=== PATIENT | female | born 1960 | race Hispanic/Latino ===

== ENCOUNTER → 2016-03-18 | Day surgery (SDC) | payer OTHER ==
[~2016-03-18] MED LIST: ASPIRIN EC81 M1 PO; FLOVENT HFA12 GM INH; LIDOCAINE1 EACH TOP; MELOXICAM15 M1 PO; MONTELUKAST SOD10 M1 PO; OXYBUTYNIN CHLOR5 M2 PO; PAXIL40 M1 PO; VENTOLIN HFA18 GM INH
--- NOTE | 2016-03-18 15:22 | Operative Report ---
Operative/Inv Procedure Report Surgery Date: 03/18/16 Name of Procedure: cystoscopy: mid-urethral sling/mesh insertion Pre-Operative Diagnosis: stress urinary incontinence Post-Operative Diagnosis: same Estimated Blood Loss: less than 50ml Surgeon/Project Manager Retail: GE[place] GALLOWAY MD Anesthesia: laryngeal mask airway Complications: none Condition: improved Operative/Procedure Note Note: The patient was taken to the operating room placed the OR table in supine position. After adequate anesthesia and antibiotics the patient was then placed lithotomy stirrups draped and prepped in usual surgical fashion. Weighted speculum was placed without difficulty. 14 [place] Kim catheter was inserted without difficulty, draining clear urine. Once the bladder was completely drained, the kim was clamped. Hydrodissection, using 1% lidocaine with epinephrine, was performed along the mid line of the urethra, from the urethral orifice to the bladder neck. 15 blade knife was used to make an vertical incision along the length of the urethra. Using blunt and sharp dissection, anterior vaginal flaps were were dissected in order to expose the periurethral fascia. The medial aspect of the initial bone was palpable from both sides of the urethral dissection. Stab incisions on the lateral portion of the labia, approximately 2 cm below the insertion point of the gracilis was performed using 15 blade knife. The entire area was infiltrated with 2% lidocaine with epinephrine. The finder needle was used in order to identify the inner surface of the initial spine to find the obturator space. Using the right-handed needle passer, the puncture wound on the left side of the patient was entered, guiding the passer, with index finger in the vaginal yassine-urethral space, through the inner surface of the obturator, and into the yassine-vesicle space extending out through the left side of the anterior vaginal dissection. The mesh was then attached to the needle passer, and the needle passer was then retracted along the same line as was entered, pulling the mesh in place along with it. The oposite side of the mesh was passed into the yassine-vesical space, and out through the right stab incision using mirror image technique. The mesh was flattened, and securely placed across the mid-urethral position. Copious amount of vancomycin irrigation solution was used to irrigate the vaginal incision as well as the lateral incisions. The Kim catheter was removed, followed by insertion of a 22 [place]i cystoscope sheath with a 30 angle lens. Upon entering the bladder the bladder was noted to be free of tumor free of injury free of stone area both ureteral orifices were in their orthotopic position with clear reflux bilaterally. The cystoscope was then drained and the 14 [place] Kim catheter was then reinserted. The excess mesh material extruding from the lateral incisions was cut down below the skin, both lateral incisions were closed using Mckeon. The anterior vaginal incision was closed using 2-0 undyed Vicryl stitch in a alternating simple/locking stitch. Bacitracin coated vaginal packing was then placed into the vaginal vault. The Kim catheter was placed into a leg bag, which will be discontinued in the recovery room once the patient is awake along with the vaginal packing. Patient tolerated procedure well, all sponge needle and instrument count were correct at the end of the case. Discharge Disposition: Same Day Admissions Additional Comments: f/u 2 weeks CC: GE[place] GALLOWAY MD
--- NOTE | 2016-03-19 10:45 | OP PSYCH INCIDENTAL NOTE ---
OPS Incidential Note Details: Patient canceled for today's group (22) session, she had a procedure yesterday and was in pain.
== END ==
LOC: STS 03-13 02:24
DX: N39.3 Stress incontinence (female) (male) (principal); Z86.73 Personal history of transient ischemic attack (TIA), and cerebral infarction without residual deficits; Z79.82 Long term (current) use of aspirin; J45.909 Unspecified asthma, uncomplicated
CPT/HCPCS: J1885; J2250; J2405